=== PATIENT | male | born 1950 | race Caucasian/White ===

== ENCOUNTER 2021-06-05 13:34 | Emergency (ER) | payer MEDICARE, OTHER ==
[~2021-06-05] VITALS: Ht 175.3 cm; Wt 79.4 kg
--- NOTE | 2021-06-05 13:45 | NUR ---
seen pt. at triage area.
[2021-06-05] MEDS ORDERED: MORPHINE SULFATE 4 MG/1 ML DISP.SYRIN ONE (13:54)
[2021-06-05] MEDS ORDERED: ONDANSETRON 4 MG/2 ML VIAL ONE (13:54)
[2021-06-05] MEDS ORDERED: ONDANSETRON 4 MG/2 ML VIAL IV ONE (14:00)
[2021-06-05] MEDS ORDERED: IV NORMAL SALINE 1000 ML BAG IV ONE (14:00)
[2021-06-05] MEDS ORDERED: MORPHINE SULFATE 2 MG/1 ML DISP.SYRIN IV ONE (14:00)
[2021-06-05 14:12] LABS: HEMATOCRIT 41.8 % (36.7-47.1); MEAN CORPUSCULAR HEMOGLOBIN 29.1 uug (23.8-33.4); MEAN CORPUSCULAR VOLUME 85.4 fL (73.0-96.2); PLATELET COUNT (AUTO) 240 K/uL (152-348)
--- NOTE | 2021-06-05 14:13 | NUR ---
PT out of ER for Ct scan.
[2021-06-05 14:20] LABS: *BILIRUBIN,URIN NEGATIVE (NEGATIVE); *CLARITY,URINE CLEAR (CLEAR); *COLOR,URINE YELLOW (YELLOW); *KETONES,URINE NEGATIVE (NEGATIVE); LEUKOCYTE ESTERASE ,URINE NEGATIVE (NEGATIVE); NITRITE, URINE NEGATIVE (NEGATIVE); PH,URINE 6.5 (5.0-8.0); UGLUCOSE NEGATIVE (NEGATIVE)
[2021-06-05 14:22] LABS: *BLOOD, URINE TRACE (NEGATIVE)
[2021-06-05 14:44] LABS: BILIRUBIN,DIRECT 0.2 mg/dL (0.0-0.2); BILIRUBIN,TOTAL 0.5 mg/dL (0.2-1.0); CREATININE 1.1 mg/dL (0.6-1.3); POTASSIUM 3.8 mmol/L (3.5-5.1)
[2021-06-05] MEDS ORDERED: FENO160T PO (14:50)
[2021-06-05] MEDS ORDERED: MAGN400T8 PO (14:50)
[2021-06-05] MEDS ORDERED: MIRT-93 PO (14:50)
[2021-06-05] MEDS ORDERED: ATOR10TA PO (14:50)
[2021-06-05] MEDS ORDERED: METH-817 PO (14:50)
[2021-06-05] MEDS ORDERED: OMEG1CAP PO (14:50)
[2021-06-05] MEDS ORDERED: ASPI81TA31 PO (14:50)
[2021-06-05] MEDS ORDERED: VITAMIN D PO (14:50)
[2021-06-05] MEDS ORDERED: KETOROLAC TROMETHAMINE 15 MG INJ ONE (15:30)
[2021-06-05] MEDS ORDERED: KETOROLAC TROMETHAMINE 15 MG INJ IVP ONE (15:30)
[2021-06-05] MEDS ORDERED: IBUP-1955 PO (15:31)
[2021-06-05] MEDS ORDERED: POLY17PO4 PO (15:31)
--- NOTE | 2021-06-05 15:42 | NUR ---
IV removed. Catheter intact and site benign. Pressure and 4x4 gauze applied to site. No bleeding noted.
[2021-06-05 15:43] VITALS: BP 120/67
--- NOTE | 2021-06-05 15:43 | NUR ---
Patient discharged to home in stable condition. Written and verbal after care instructions given. Patient verbalizes understanding of instructions. Stressed follow up or return to ER for worsening s/s.
[2021-06-05 19:00] LABS: BACTERIA,URINE NONE SEEN /HPF (NONE SEEN); RBC,URINE NONE SEEN /HPF (0-3); SQUAMOUS EPITHELIAL CELL,UR NONE SEEN /HPF (NONE SEEN); WBC,URINE NONE SEEN /HPF (0-3)
[2021-06-05 19:02] LABS: TRIPLE PHOSPHATE CRYSTAL,UR MODERATE /HPF (NONE SEEN)
== END 2021-06-05 15:44 | disposition home or self-care (01) ==
LOC: ER 13:34
DX: R10.32 Left lower quadrant pain (principal); K59.00 Constipation, unspecified; Z87.442 Personal history of urinary calculi; Z79.82 Long term (current) use of aspirin; E78.5 Hyperlipidemia, unspecified
CPT/HCPCS: 36415; 74176; 80048; 80076; 81001; 83690; 85025; 96361; 96374; 96375; 99284; J1885; J2270; J2405; J7040; A4663

== ENCOUNTER 2022-07-20 22:57 | Emergency (ER) | payer MEDICARE, OTHER ==
[~2022-07-20] VITALS: Ht 172.7 cm; Wt 76.2 kg
[~2022-07-20 22:57] MED LIST: ASPI81TA31 PO; ATOR10TA PO; FENO160T PO; IBUP-1955 PO; MAGN400T8 PO; METH-817 PO; MIRT-93 PO; OMEG1CAP PO; POLY17PO4 PO; VITAMIN D PO
[2022-07-21] MEDS ORDERED: CIPR7.5D RIGHT EAR (00:17)
--- NOTE | 2022-07-21 00:30 | NUR ---
Patient discharged to home in stable condition. Written and verbal after care instructions given. Patient verbalizes understanding of instructions. Stressed follow up or return to ER for worsening s/s. Patient walked out wiht steady gait.
[2022-07-21 01:21] VITALS: BP 120/91
== END 2022-07-21 00:35 | disposition home or self-care (01) ==
LOC: ER 22:57
DX: S00.411A Abrasion of right ear, initial encounter (principal); E78.00 Pure hypercholesterolemia, unspecified; F17.210 Nicotine dependence, cigarettes, uncomplicated; Z79.1 Long term (current) use of non-steroidal anti-inflammatories (NSAID); Z79.899 Other long term (current) drug therapy; Z79.82 Long term (current) use of aspirin; X58.XXXA Exposure to other specified factors, initial encounter; Y93.89 Activity, other specified; Y92.89 Other specified places as the place of occurrence of the external cause; Y99.8 Other external cause status
CPT/HCPCS: A4663